=== PATIENT | female | born 1990 ===

== ENCOUNTER 2017-04-30 00:08 | Emergency (ER) | payer OTHER ==
[~2017-04-30] VITALS: Ht 160 cm; Wt 74.0 kg
[2017-04-30 00:15] VITALS: Ht 160 cm; Wt 74.0 kg
[2017-04-30] MEDS ORDERED: ACETAMINOPHEN 500 MG TAB PO STA (01:21)
[2017-04-30] MEDS ORDERED: DEXAMETHASONE 10 MG/ML 1 ML INJ IM ONE (01:30)
--- NOTE | 2017-04-30 01:33 | ERD ---
ER Documentation Chief Complaint Date/Time DATE: 04/30/17 TIME: 01:32 Chief Complaint sore throat, fever HPI Patient has had sore throat and fever for 2 days. She was seen in outside facility and given a prescription for Augmentin which she decided to take today but she continues to have symptoms. She is tolerating oral intake. Pain is worse with swallowing. No nausea or vomiting. ROS All systems reviewed and are negative except as per history of present illness. Allergies Allergies: Coded Allergies: No Known Allergy (Unverified , 04/30/17) PMhx/Soc History of Surgery: No Anesthesia Reaction: No Hx Neurological Disorder: No Hx Respiratory Disorders: No Hx Cardiac Disorders: No Hx Psychiatric Problems: No Hx Miscellaneous Medical Probl: No Hx Alcohol Use: No Hx Substance Use: No Hx Tobacco Use: No Smoking Status: Never smoker FmHx Family History: No diabetes Physical Exam Vitals Vital Signs Date Time Temp Pulse Resp B/P Pulse Ox O2 Delivery O2 Flow Rate FiO2 04/30/17 00:15 100.2 104 20 139/82 99 Physical Exam INITIAL VITAL SIGNS: Reviewed by me GENERAL: Awake, alert and oriented x 4, well appearing, nontoxic, speaking in full sentences. No acute distress HEAD: Atraumatic NECK: Supple. No masses. Full range of motion. No meningismus. No midline tenderness. EYES: EOMI. PERRL. NOSE: Normal nose. THROAT: Bilateral tonsillar erythema, no edema. No exudates. Uvula midline. No kissing tonsils. RESPIRATORY: Clear to auscultation bilaterally. Symmetric chest wall rise. No wheezing or rales. No accessory muscle use. CV: Regular rate and rhythm. No murmurs, rubs, or gallops. Results 24 hrs Current Medications Medications (Trade) Dose Ordered Sig/Marly Route PRN Reason Start Time Stop Time Status Last Admin Dose Admin Dexamethasone (Decadron) 10 mg ONCE ONCE IM 04/30/17 01:30 04/30/17 01:31 DC 04/30/17 01:27 Acetaminophen (Tylenol Tab) 1,000 mg ONCE STAT PO 04/30/17 01:21 04/30/17 01:23 DC 04/30/17 01:27 Procedures/MDM 27-year-old female presents with pharyngitis. Looks viral to me however she is given Augmentin from an outside provider so recommended she continue to take it. She has a low-grade temperature 100.2 and she was given Tylenol here as well as Decadron and recommended to continue to take the antibiotic as prescribed. Patient counseled regarding my diagnostic impression and care plan. Prior to discharge all questions answered. Pt agrees with treatment plan and understands strict return precautions. Pt is instructed to follow up with primary care provider within 24-48 hours. Precautionary instructions provided including instructions to return to the ER if not improving or for any worsening or changing symptoms or concerns. Departure Diagnosis: Primary Impression: Pharyngitis Condition: Stable Patient Instructions: Pharyngitis, Viral Additional Instructions: Call your primary care doctor TOMORROW for an appointment during the next 1-2 days.See the doctor sooner or return here if your condition worsens before your appointment time. ESTEBAN FORTE PA-C Apr 30, 2017 01:33
== END 2017-04-30 02:00 | disposition home or self-care (01) ==
LOC: FTE 00:08
DX: J02.9 Acute pharyngitis, unspecified (principal)
CPT/HCPCS: 96372; 99284; J1100